=== PATIENT | male | born 2000 | race Caucasian/White ===

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

== ENCOUNTER → 2019-12-26 | Outpatient (CLI) | payer OTHER | LOC: ZCOL.LAB 20:58 | DX: M79.10 Myalgia, unspecified site (principal); R05 Cough; R19.7 Diarrhea, unspecified; Z20.828 Contact with and (suspected) exposure to other viral communicable diseases ==